=== PATIENT | male | born 1995 | race Caucasian/White ===

== ENCOUNTER 2017-09-22 15:52 | Emergency (ER) | payer SELFPAY ==
[2017-09-22] MEDS ORDERED: KETOROLAC 30 MG/ML VIAL IVP ONE (16:26)
[2017-09-22] MEDS ORDERED: 0.9 % SODIUM CHLORIDE 1,000 ML BAG IV ONE (16:26)
--- NOTE | 2017-09-22 16:27 | Emergency Department Record ---
History of Present Illness - General Chief complaint: Flank Pain Stated complaint: LT LOWER ABDOMINAL/BACK PAIN,NAUSEA, SHORT OF MAY Time Seen by Provider: 09/22/17 16:20 Source: Patient Mode of Arrival: Ambulatory Limitations: No limitations - History of Present Illness Initial comments: 22 yo male presents with left sided pain. The pain has been on and off for about a month. He has noted no changes in the urine color but no blood. No fevers or chills, NO blood in the stools. No rash. No similar history of the same. He has some nausea. No diarrhea. He did vomit once. No medications. Onset/Timin -: Days(s) Location: Abdomen, Left flank Radiation: None Severity: Moderate Severity scale (1-10): 9 Quality: Sharp Consistency: Constant Improves with: None Worsens with: None Reports: Denies other symptoms, Nausea/vomiting - Related Data Sexually active: Yes Previous Rx's Medication Instructions Recorded Hydrocodone/APAP 5/325Mg [[place] 1 each PO Q6H #12 tab 09/22/17 5Mg/325Mg] Ondansetron [Zofran Odt] 4 mg PO Q8H #10 tab.rapdis 09/22/17 Tamsulosin HCl [Flomax] 0.4 mg PO DAILY #7 cap.er.24h 09/22/17 Allergies Allergy/AdvReac Type Severity Reaction Status Date / Time No Known Drug Allergies Allergy Verified 09/22/17 16:12 Travel Screening - Travel/Exposure Within Last 30 Days Have you traveled within the last 30 days?: No - Travel/Exposure Within Last Year Have you traveled outside the [place] in the last year?: No - Travel Symptoms Symptom Screening: None Review of Systems Constitutional: Denies: Chills, Fever, Malaise, Weakness Eyes: Denies: Eye discharge ENT: Denies: Congestion, Throat pain Respiratory: Denies: Cough Cardiovascular: Denies: Chest pain, Syncope Endocrine: Denies: Fatigue, Polydipsia, Polyuria Gastrointestinal: Reports: As per HPI, Abdominal pain, Nausea, Vomiting. Denies : Diarrhea Genitourinary: Reports: Dysuria. Denies: Frequency, Hematuria Musculoskeletal: Reports: Back pain. Denies: Arthralgia, Joint swelling, Myalgia, Neck pain Skin: Denies: Bruising, Change in color, Rash Neurological: Denies: Headache, Numbness, Weakness Psychiatric: Denies: Anxiety Hematological/Lymphatic: Denies: Easy bleeding, Easy bruising, Swollen glands Past Medical History - SOCIAL HISTORY Smoking Status: Never smoker Alcohol Use: None Drug Use: None - RESPIRATORY Hx Respiratory Disorders: No - CARDIOVASCULAR Hx Cardio Disorders: No - NEURO Hx Neuro Disorders: No - GI Hx GI Disorders: No - Hx Genitourinary Disorders: No - ENDOCRINE Hx Endocrine Disorders: No - MUSCULOSKELETAL Hx Musculoskeletal Disorders: No - PSYCH Hx Psych Problems: No - HEMATOLOGY/ONCOLOGY Hx Hematology/Oncology Disorders: No Family Medical History Any Significant Family History?: Yes Hx Cancer: Father *Cancer Comment: skin Physical Exam - General General Appearance: Alert, Oriented x3, Cooperative, No acute distress Limitations: No limitations - Head Head exam: Normal inspection - Eye Eye exam: Normal appearance, PERRL. negative: Conjunctival injection, Scleral icterus - ENT ENT exam: Normal exam, Mucous membranes moist Ear exam: Normal external inspection Nasal Exam: Normal inspection Mouth exam: Normal external inspection - Neck Neck exam: Normal inspection - Respiratory Respiratory exam: Normal lung sounds bilaterally. negative: Respiratory distress - Cardiovascular Cardiovascular Exam: Regular rate, Normal rhythm, Normal heart sounds - GI/Abdominal GI/Abdominal exam: Soft, Tenderness. negative: Distended, Guarding, Rebound, Rigid - Rectal Rectal exam: Deferred - exam: Deferred - Extremities Extremities exam: Normal inspection, Full ROM, Normal capillary refill. negative: Tenderness - Back Back exam: Reports: Normal inspection, CVA tenderness (L). Denies: CVA tenderness (R), Full ROM, Paraspinal tenderness, Tenderness, Vertebral tenderness - Neurological Neurological exam: Alert, Normal gait, Oriented X3 - Psychiatric Psychiatric exam: Normal affect, Normal mood - Skin Skin exam: Dry, Intact, Normal color, Warm Course Vital Signs 09/22/17 16:14 Temperature 98.3 F Pulse Rate 88 Respiratory 20 Rate Blood Pressure 134/97 Pulse Ox 100 - Reevaluation(s) Reevaluation #1: 09/22/17 17:13 The labs were reviewed The CBC demonstrated a WBC of 15 The UA was positive for blood and RBC's 09/22/17 17:46 The patient reports very good pain control with almost complete resolution His nausea is still present 09/22/17 18:[address] demonstrated a 3mm distal L uretera stone The patient has good pain control, 3mm stone with good chance of passing spontaneously He was given flomax, filter for urination, pain medication We discussed reasons for return or to be seen No signs of infection. Medical Decision Making - Lab Data Result diagrams: 09/22/17 16:35 09/22/17 16:35 Disposition Disposition: Discharge Clinical Impression: Renal stone, Renal colic on left side Disposition: Home, Self-Care Condition: (1) Good Instructions: Renal Colic (ED) Additional Instructions: Be seen immediately if you have uncontrolled pain, vomiting or fever Call to get a new family doctor Prescriptions: Hydrocodone/APAP 5/325Mg [[place] 5Mg/325Mg] 1 each PO Q6H #12 tab Ondansetron [Zofran Odt] 4 mg PO Q8H #10 tab.rapdis Tamsulosin HCl [Flomax] 0.4 mg PO DAILY #7 cap.er.24h Forms: Patient Portal Access Time of Disposition: 18:28 Quality - Quality Measures Quality Measures: N/A - Blood Pressure Screening Does Patient Have Any of the Following: No Blood Pressure Classification: Hypertensive Reading Systolic Measurement: 134 Diastolic Measurement: 97 Screening for High Blood Pressure: < Pre-Hypertensive BP, F/U Documented > [ [id number]] Pre-Hypertensive Follow-up Interventions: Referral to alternative/primary care provider.
[2017-09-22 16:42] LABS: URINE APPEARANCE CLEAR; URINE BILIRUBIN NEGATIVE (NEGATIVE); URINE BLOOD LARGE (NEGATIVE); URINE COLOR YELLOW; URINE GLUCOSE (UA) NEGATIVE (NEGATIVE); URINE KETONE NEGATIVE (NEGATIVE); URINE LEUKOCYTE ESTERASE NEGATIVE (NEGATIVE); URINE NITRITE NEGATIVE (NEGATIVE); URINE PROTEIN TRACE (NEGATIVE)
[2017-09-22 16:54] LABS: BASO % 0.2 % (0-6); EOS % 0.9 % (0-6); HEMATOCRIT 42.7 % (42.0-52.0); HEMOGLOBIN 15.6 gm/dl (14.0-18.0); LYMPH % 6.7 % (16-45); MEAN CELL VOLUME 83.1 fl (81-97); MEAN CORPUSCULAR HEMOGLOBIN 30.4 pg (27-33); MEAN CORPUSCULAR HGB CONC 36.5 g/dl (32-36); MEAN PLATELET VOLUME 9.6 fl (7.4-10.4); MONO % 14.2 % (0-9); PLATELET COUNT 251 K/uL (130-400); RED BLOOD COUNT 5.14 M/uL (4.40-5.70); RED CELL DISTRIBUTION WIDTH 12.5 % (11.5-14.5)
[2017-09-22 16:57] LABS: URINE WBC 0 - 2 (0-2/hpf)
[2017-09-22 17:01] LABS: BLOOD UREA NITROGEN 15 mg/dL (6-20); CREATININE 1.1 mg/dL (0.7-1.2); EST GLOMERULAR FILTRATION RATE > 60 mL/min
[2017-09-22 17:04] LABS: GLUCOSE,RANDOM 98 mg/dL (74-109)
[2017-09-22 17:07] LABS: LIPASE 60 U/L (13-60)
[2017-09-22] MEDS ORDERED: ONDANSETRON 4 MG ODT TABLET SL ONE (17:45)
[2017-09-22] MEDS ORDERED: TAMSULOSIN HCL 0.4 MG CAP.ER.24H PO ONE (17:45)
--- NOTE | 2017-09-24 07:36 | CT SCAN REPORT ---
EXAM: CT OF THE ABDOMEN AND PELVIS WITHOUT CONTRAST HISTORY: LEFT FLANK PAIN. TECHNIQUE: Thin collimation helical CT examination of the abdomen and pelvis was performed without oral or intravenous contrast administration for the express purpose of evaluating the renal collecting systems for obstructing calculi. Lack of oral and IV contrast utilization limits evaluation of the bowel and solid viscera respectively. Comparison: None at this time. FINDINGS: There is minimal dependent atelectasis within the left lung base. The visualized lung bases are otherwise clear and there is no pleural or pericardial effusion. The heart is not enlarged. The liver, spleen, pancreas and adrenal glands are normal in appearance. The gallbladder is unremarkable and no biliary ductal dilatation is seen. The kidneys are normal in position. The left kidney is mildly enlarged and there is mild left perinephric fat stranding/perinephric fluid. There is mild to moderate left hydroureteronephrosis down to the level of the distal ureter where there is a 3 mm obstructing calculus. There is associated periureteral fat stranding at the mid to distal level. There is a tiny 1 mm nonobstructing calculus in the mid right kidney. No other nephrolithiasis nor renal mass. The right renal collecting system is normal in caliber. No intrinsic urinary bladder abnormality. No pelvic mass, lymphadenopathy, or free pelvic fluid. No gross bowel dilatation nor bowel wall thickening. The appendix is visualized and normal in appearance. No lytic or blastic bone lesion. A few nonenlarged inguinal/common femoral lymph nodes are noted bilaterally. The abdominal wall is intact. IMPRESSION: 1. 3 MM IN SHORT AXIS DIAMETER OBSTRUCTING CALCULUS IN THE DISTAL URETER APPROXIMATELY 3-4 CM PROXIMAL TO THE UVJ CAUSING MILD TO MODERATE LEFT HYDROURETERONEPHROSIS WITH ASSOCIATED PERINEPHRIC FAT STRANDING/EDEMA AND MILD PERIURETERAL EDEMA. 2. 1 MM NONOBSTRUCTING CALCULUS IN THE MID RIGHT KIDNEY. 3. NORMAL APPENDIX. JOB NUMBER: [id number] [facility]
== END 2017-09-22 18:44 | disposition home or self-care (01) ==
LOC: ER 15:52
DX: N13.2 Hydronephrosis with renal and ureteral calculous obstruction (principal); R11.2 Nausea with vomiting, unspecified
CPT/HCPCS: 99284 ×2; 96374; 96361; 83690; 85025; 80048; 81001; 74176; J1885; J7030